=== PATIENT | female | born 1990 | race Caucasian/White ===

== ENCOUNTER 2019-09-25 11:55 | Emergency (ER) | payer OTHER, MEDICAID ==
[~2019-09-25] VITALS: Ht 170.2 cm; Wt 142.9 kg
[2019-09-25 12:48] LABS: INFLUENZA A ANTIGEN Negative (Negative)
[2019-09-25] MEDS ORDERED: ONDANSETRON HCL4 M2 PO (13:12)
[2019-09-25] MEDS ORDERED: TAMIFLU75 MG PO (13:12)
[2019-09-25] MEDS ORDERED: TESSALON PERLE100 MG PO (13:12)
[2019-09-25] MEDS ORDERED: VENTOLIN HFA 1818 GM INH (13:12)
[2019-09-25] MEDS ORDERED: MEDROLDOSEPACK PO (13:12)
== END 2019-09-25 13:20 | disposition home or self-care (01) ==
LOC: M.ERS 11:55
PROVIDERS: Nurse Practitioner Family
DX: J10.1 Influenza due to other identified influenza virus with other respiratory manifestations (principal); Z98.890 Other specified postprocedural states